=== PATIENT | male | born 1980 | race Hispanic/Latino ===

== ENCOUNTER 2018-10-20 15:38 | Emergency (ER) | payer MEDICAID ==
[2018-10-20 15:57] VITALS: BMI 29.8
[2018-10-20 15:59] VITALS: BP 118/75; PULSE 75; RESP 20; TEMP 97.5; O2SAT 99
--- NOTE | 2018-10-20 17:51 | C.PDOC ---
Time Seen by Provider: 10/20/18 16:07 Chief Complaint (Nursing): Abnormal Skin Integrity Past Medical History Vital Signs: Last Vital Signs Temp 97.5 F L 10/20/18 15:57 Pulse 75 10/20/18 15:57 Resp 20 10/20/18 15:57 BP 118/75 10/20/18 15:57 Pulse Ox 99 10/20/18 15:57 - Medical History PMH: Anxiety, Bipolar Disorder Comment Only: Rheumatoid Arthritis (pt denies) Family History: States: Unknown Family Hx - Social History Hx Alcohol Use: No Hx Substance Use: Yes - Immunization History Hx Tetanus Toxoid Vaccination: Yes Hx Influenza Vaccination: No Hx Pneumococcal Vaccination: Yes ED Course And Treatment O2 Sat by Pulse Oximetry: 99 Disposition - Disposition Referrals: Robert Langford MD [Staff Provider] - Disposition: HOME/ ROUTINE Disposition Time: 17:49 Condition: GOOD Additional Instructions: Follow up with the medical doctor within 1-2 days. Return if worsened. Prescriptions: Ibuprofen [Motrin] 600 mg PO TID #21 tab predniSONE [Prednisone] 20 mg PO BID #10 tab Instructions: Rheumatoid Arthritis (DC) - Clinical Impression Clinical Impression: Rheumatoid arthritis flare
--- NOTE | 2018-10-20 18:08 | C.PDOC ---
History Of Present Illness Patient is 38 year old male, with a PMHx of bipolar disorder, osteoarthritis, who presents to the ED c/o for a rash on his bilateral forearms for the past 3 days, with associated hand pain. Patient also c/o pain throughout his body. He states that he had Lyme disease in the past and was treated with antibiotics. Patient reports that he takes Depakote and Zoloft for his bipolar disorder. He denies any spreading of rash, itching or pain of rash, fever, CP, or SOB. No narcotics or alcohol. Time Seen by Provider: 10/20/18 16:07 Chief Complaint (Nursing): Abnormal Skin Integrity History Per: Patient History/Exam Limitations: no limitations Onset/Duration Of Symptoms: Days (3) Current Symptoms Are (Timing): Still Present Quality Of Symptoms: denies: Itching Recent travel outside of the [place]: No Additional History Per: Patient Past Medical History Reviewed: Historical Data, Nursing Documentation, Vital Signs Vital Signs: Last Vital Signs Temp 97.5 F L 10/20/18 15:57 Pulse 75 10/20/18 15:57 Resp 20 10/20/18 15:57 BP 118/75 10/20/18 15:57 Pulse Ox 99 10/20/18 15:57 - Medical History PMH: Anxiety, Bipolar Disorder Comment Only: Rheumatoid Arthritis (pt denies) Surgical History: No Surg Hx Family History: States: Unknown Family Hx - Social History Hx Alcohol Use: No Hx Substance Use: Yes - Immunization History Hx Tetanus Toxoid Vaccination: Yes Hx Influenza Vaccination: No Hx Pneumococcal Vaccination: Yes Review Of Systems Except As Marked, All Systems Reviewed And Found Negative. Constitutional: Negative for: Fever Cardiovascular: Negative for: Chest Pain Respiratory: Negative for: Shortness of Breath Skin: Positive for: Rash (bilateral forarms ) Physical Exam - Physical Exam Appears: Non-toxic, No Acute Distress Skin: Warm, Dry, Rash (scattered maculopapular rash on the dorsal aspect of bilateral forearms ) Head: Atraumatic, Normacephalic Eye(s): bilateral: Normal Inspection, PERRL, EOMI Ear(s): Bilateral: Normal Oral Mucosa: Moist Throat: No Erythema, No Exudate Neck: Normal ROM, Supple Chest: Symmetrical, No Tenderness Cardiovascular: Rhythm Regular, No Friction Rub, No Murmur Respiratory: Normal Breath Sounds, No Rales, No Rhonchi, No Wheezing Gastrointestinal/Abdominal: Soft, No Tenderness Back: Normal Inspection, No CVA Tenderness Extremity: Normal ROM, No Swelling Neurological/Psych: Oriented x3, Normal Speech, Normal Cognition, Normal Motor Gait: Steady ED Course And Treatment O2 Sat by Pulse Oximetry: 99 (on RA) Pulse Ox Interpretation: Normal Medical Decision Making Medical Decision Making: Plan: Motrin 800mg PO Prednisone 40mg PO On re-exam, the patient reports improvement of symptoms. Lungs are CTA, heart is RRR, abdomen is soft, non-tender and tolerating PO well. Pt is ambulatory in the ED with steady gait. Follow up with the medical doctor within 1-2 days. Return if worsened. Disposition - Disposition Referrals: Robert Langford MD [Staff Provider] - Disposition: HOME/ ROUTINE Disposition Time: 17:49 Condition: GOOD Additional Instructions: Follow up with the medical doctor within 1-2 days. Return if worsened. Prescriptions: Ibuprofen [Motrin] 600 mg PO TID #21 tab predniSONE [Prednisone] 20 mg PO BID #10 tab Instructions: Rheumatoid Arthritis (DC) Forms: [employer] (Spanish), Work Excuse - Clinical Impression Clinical Impression: Rheumatoid arthritis flare - PA / DEALER DEVELOPMENT MANAGER / Resident Statement MD/DO has examined the patient and agrees with the treatment plan. - Scribe Statement The provider has reviewed the documentation as recorded by the Earle Winston All medical record entries made by the Scribe were at my direction and personally dictated by me. I have reviewed the chart and agree that the record accurately reflects my personal performance of the history, physical exam, medical decision making, and the department course for this patient. I have also personally directed, reviewed, and agree with the discharge instructions and disposition.
== END 2018-10-20 18:12 | disposition home or self-care (01) ==
LOC: C.ER 15:38
DX: M06.9 Rheumatoid arthritis, unspecified (principal)